=== PATIENT | female | born 1950 | race Two or more races ===

== ENCOUNTER 2021-05-26 05:45 | Day surgery (SDC) | payer OTHER ==
[~2021-05-26 05:45] MED LIST: GLIMEPIRIDE4 MG PO; INSULIN SYRING1 EA29; LIPITOR20 MG PO; LOSARTAN POTAS100 MG PO; SINGULAIR 10MG10 MG PO
[2021-05-26] MEDS ORDERED: MACROBID 100 M100 MG PO (10:44)
== END 2021-05-26 17:47 | disposition home or self-care (01) ==
LOC: CIR.AMB 05:45
PROVIDERS: ATTEND Obstetrics & Gynecology Gynecology
DX: N81.11 Cystocele, midline (principal); Z88.0 Allergy status to penicillin; N81.12 Cystocele, lateral; Z88.6 Allergy status to analgesic agent; I11.9 Hypertensive heart disease without heart failure